=== PATIENT | female | born 1980 | race African-American/Black ===

== ENCOUNTER → 2024-04-18 | Emergency (ER) | payer OTHER ==
[~2024-04-18] MED LIST: Morphine 4 MG/ML VIAL ONE; Ondansetron PF 4 MG/2 ML Vial ONE
== END ==
LOC: ERS 22:56
DX: C76.0 Malignant neoplasm of head, face and neck (principal); R06.9 Unspecified abnormalities of breathing
CPT/HCPCS: 71045; 96374; 96375; J2272; J2405

== ENCOUNTER 2024-04-27 08:32 | Day surgery (SDC) | payer OTHER ==
[~2024-04-27 08:32] MED LIST changes: +CISPLATIN IV SCH; +Dexamethasone 10 MG/ML VIAL SLOW IVP SCH; +Fosaprepitant Dimeglumine 150 MG in 0.9 % Sodium Chloride 145 ML IVPB SCH; +MANNITOL IV SCH; -Morphine 4 MG/ML VIAL ONE; -Ondansetron PF 4 MG/2 ML Vial ONE; +PALONOSETRON HCL 0.05 MG/ML 5 ML VIAL IVP SCH; +SODIUM CHLORIDE 0.9% IV SCH; +Sodium Chloride 0.9% 500 ML IV SCH
[2024-04-27] MEDS ORDERED: Dexamethasone 10 MG/ML VIAL ONE (09:42)
[2024-04-27] MEDS ORDERED: PALONOSETRON HCL 0.05 MG/ML 5 ML VIAL ONE (09:42)
[2024-04-27] MEDS: Fosaprepitant Dimeglumine 150 MG in 0.9 % Sodium Chloride 145 ML IVPB SCH (09:42)
[2024-04-27] MEDS: PALONOSETRON HCL 0.05 MG/ML 5 ML VIAL IVP SCH (09:43)
[2024-04-27] MEDS: Dexamethasone 10 MG/ML VIAL SLOW IVP SCH (09:43)
[2024-04-27 10:14] VITALS: BP 102/69; TEMP 97.6
[2024-04-27] MEDS: SODIUM CHLORIDE 0.9% IV SCH (10:18)
[2024-04-27] MEDS: CISPLATIN IV SCH (10:18)
[2024-04-27] MEDS: MANNITOL IV SCH (10:18)
== END 2024-04-27 13:04 | disposition home or self-care (01) ==
LOC: ONC/OP 08:32
PROVIDERS: ATTEND Internal Medicine Hematology & Oncology
DX: C14.8 Malignant neoplasm of overlapping sites of lip, oral cavity and pharynx (principal)
CPT/HCPCS: 36415; 80053; 82248; 83615; 83735; 84100; 84550; 85025; 96361; 96367; 96375; 96413; J1100; J1453; J2150; J2469; J3480; J7030; J9060

== ENCOUNTER 2024-05-03 12:48 | Day surgery (SDC) | payer OTHER ==
[2024-05-03 13:34] LABS: #Basophils 0.04 10x3/uL (0.0-0.2); %Basophils 0.3 % (0.0-1.0); %Eosinophils 1.2 % (0.0-10.0); %Lymphocytes 6.7 % (21.0-51.0); %Monocytes 6.7 % (0.0-10.0); %Neutrophils 84.5 % (42.0-75.0); Hematocrit 35.2 % (36.0-47.0); Hemoglobin 11.7 g/dL (12.0-16.0); Mean Corpuscular HGB CONC 33.2 g/dL (32.0-36.0); Mean Corpuscular Hemoglobin 27.5 pg (27.0-31.0); Mean Corpuscular Volume 82.6 fL (78.0-98.0); Mean Platelet Volume 9.6 fL (7.4-10.4); Platelet Count 389 10x3/uL (130-400); RBC Distribution Width 14.1 % (11.5-14.5); Red Blood Cell (RBC) Count 4.26 mill/uL (4.20-5.40)
[2024-05-03 13:52] LABS: ALT (SGPT) 131 U/L (8-55); AST (SGOT) 165 U/L (5-34); Albumin 3.7 g/dL (3.5-5.0); Alkaline Phosphatase 120 U/L (40-110); Anion Gap 18 mmol/L (10-20); BUN (Urea Nitrogen) 36 mg/dL (7.0-18.7); Bilirubin, Total 0.6 mg/dL (0.2-1.2); Calc. Creatinine Clearance 63 mL/min (70-130); Calcium 9.9 mg/dL (7.8-10.44); Carbon Dioxide 27 mmol/L (22-29); Chloride 94 mmol/L (98-107); Estimated GFR 81; Globulin 4.7 g/dL (2.4-3.5); Glucose 93 mg/dL (70-105); Potassium 3.8 mmol/L (3.5-5.1); Protein, Total 8.4 g/dL (6.0-8.3); Sodium 135 mmol/L (136-145); Uric Acid 8.3 mg/dL (2.6-6.0)
== END 2024-05-03 13:34 | disposition home or self-care (01) ==
LOC: ONC/OP 12:48
PROVIDERS: ATTEND Internal Medicine
DX: C14.8 Malignant neoplasm of overlapping sites of lip, oral cavity and pharynx (principal)
CPT/HCPCS: 80053; 83615; 83735; 84550; 85025; 99211; G0463

== ENCOUNTER 2024-05-08 12:22 | Inpatient (IN) | payer OTHER ==
[2024-05-08 13:42] LABS: #Basophils 0.04 10x3/uL (0.0-0.2); %Basophils 0.4 % (0.0-1.0); %Eosinophils 1.7 % (0.0-10.0); %Lymphocytes 4.1 % (21.0-51.0); %Monocytes 7.3 % (0.0-10.0); %Neutrophils 86.1 % (42.0-75.0); Hematocrit 35.1 % (36.0-47.0); Hemoglobin 11.9 g/dL (12.0-16.0); Mean Corpuscular HGB CONC 33.9 g/dL (32.0-36.0); Mean Corpuscular Hemoglobin 27.9 pg (27.0-31.0); Mean Corpuscular Volume 82.4 fL (78.0-98.0); Mean Platelet Volume 9.2 fL (7.4-10.4); Platelet Count 352 10x3/uL (130-400); RBC Distribution Width 13.7 % (11.5-14.5); Red Blood Cell (RBC) Count 4.26 mill/uL (4.20-5.40)
[2024-05-08] MEDS ORDERED: Morphine 2 MG/ML VIAL ONE ×2 (13:54→18:01)
[2024-05-08 13:56] LABS: ALT (SGPT) 46 U/L (8-55); AST (SGOT) 42 U/L (5-34); Albumin 3.6 g/dL (3.5-5.0); Alkaline Phosphatase 113 U/L (40-110); Anion Gap 21 mmol/L (10-20); BUN (Urea Nitrogen) 31 mg/dL (7.0-18.7); Calc. Creatinine Clearance 0 mL/min (70-130); Calcium 9.3 mg/dL (7.8-10.44); Carbon Dioxide 24 mmol/L (22-29); Chloride 92 mmol/L (98-107); Estimated GFR 100; Globulin 4.4 g/dL (2.4-3.5); Glucose 79 mg/dL (70-105); Lipase 35 U/L (8-78); Magnesium 1.4 mg/dL (1.6-2.6); Potassium 3.2 mmol/L (3.5-5.1); Sodium 134 mmol/L (136-145)
[2024-05-08] MEDS ORDERED: Iopamidol-370 76% 500 ML MDV (1 ML CHARGE) ONE (13:58)
[2024-05-08 14:02] LABS: Troponin I Less than 0.010 ng/mL (< 0.028)
[2024-05-08] MEDS ORDERED: Magnesium 2 GM/50 ML BAG (IN WATER) ONE (18:02)
[2024-05-08] MEDS ORDERED: Aspirin 300 MG Suppository ONE (18:05)
[2024-05-08] MEDS ORDERED: hydrALAZINE 20 MG/ML VIAL SLOW IVP PRN (18:17)
[2024-05-08] MEDS ORDERED: Ipratropium/Albuterol 3 ML NEB NEB PRN (18:36)
[2024-05-08] MEDS: Potassium Chloride 20 MEQ in Premix 1 BAG IVPB SCH (20:14)
[2024-05-08] MEDS: Ondansetron PF 4 MG/2 ML Vial IVP PRN (20:14)
[2024-05-08 20:23] VITALS: BMI 20.2
[2024-05-08] MEDS: Atorvastatin Calcium 40 MG TAB PER TUBE SCH (20:25)
[2024-05-08] MEDS: Morphine 2 MG/ML VIAL SLOW IVP PRN (23:17)
[2024-05-08 23:58] LABS: Bacteria/HPF None Seen HPF (None Seen); Bilirubin Negative (Negative); Blood, Urine Negative (Negative); CAUTI Indications for Culture Immunosuppressed; Clarity Clear (Clear); Glucose, Urine (Dipstick) Normal (Negative); Ketone, Urine 80 mg/dL (Negative); Leukocyte Negative Leu/uL (Negative); Nitrite Negative (Negative); Protein, Urine (Dipstick) 30 mg/dL (Neg-Trace); Urobilinogen 3 mg/dL (Less than 2); pH, Urine 5.5 (5.0-9.0)
[2024-05-09] LABS: Specific Gravity, Urine Greater than 1.060 (1.002-1.036)
[2024-05-09 00:01] LABS: Urine Culture Reflex Yes Yes
[2024-05-09] MEDS: Potassium Chloride 30 MEQ in Sodium Chloride 0.9% 1,000 ML IV SCH (00:36)
[2024-05-09 04:24] LABS: #Basophils 0.05 10x3/uL (0.0-0.2); %Basophils 0.6 % (0.0-1.0); %Eosinophils 3.4 % (0.0-10.0); %Lymphocytes 5.2 % (21.0-51.0); %Monocytes 10.5 % (0.0-10.0); %Neutrophils 79.7 % (42.0-75.0); Hematocrit 31.6 % (36.0-47.0); Hemoglobin 10.4 g/dL (12.0-16.0); Mean Corpuscular HGB CONC 32.9 g/dL (32.0-36.0); Mean Corpuscular Hemoglobin 27.5 pg (27.0-31.0); Mean Corpuscular Volume 83.6 fL (78.0-98.0); Mean Platelet Volume 9.3 fL (7.4-10.4); Platelet Count 338 10x3/uL (130-400); RBC Distribution Width 13.6 % (11.5-14.5); Red Blood Cell (RBC) Count 3.78 mill/uL (4.20-5.40)
[2024-05-09 07:42] LABS: ALT (SGPT) 55 U/L (8-55); AST (SGOT) 51 U/L (5-34); Albumin 3.1 g/dL (3.5-5.0); Alkaline Phosphatase 107 U/L (40-110); Anion Gap 18 mmol/L (10-20); BUN (Urea Nitrogen) 28 mg/dL (7.0-18.7); Bilirubin, Total 0.6 mg/dL (0.2-1.2); Calc. Creatinine Clearance 85 mL/min (70-130); Calcium 8.7 mg/dL (7.8-10.44); Carbon Dioxide 22 mmol/L (22-29); Cardiac Risk 2.9 (Less than 4.5); Chloride 100 mmol/L (98-107); Cholesterol 201 mg/dl (< 200 Desired); Estimated GFR 112; Globulin 3.9 g/dL (2.4-3.5); Glucose 76 mg/dL (70-105); HDL Cholesterol 69 mg/dL (>60 Neg Risk); LDL Cholesterol, Calculated 114 mg/dL; Potassium 3.5 mmol/L (3.5-5.1); Sodium 136 mmol/L (136-145); Triglycerides 91 mg/dL (Less than 150)
[2024-05-09] MEDS ORDERED: Ondansetron PF 4 MG/2 ML Vial IVP PRN (09:16)
[2024-05-09] MEDS ORDERED: Senokot 8.6 MG TAB PER TUBE PRN (09:17)
[2024-05-09] MEDS ORDERED: OxyCODONE IR 30 MG TAB PER TUBE PRN (09:40)
[2024-05-09] MEDS ORDERED: FIBER PER TUBE SCH (09:45)
[2024-05-09] MEDS ORDERED: LACTOSE REDUCED FOOD PER TUBE SCH (09:45)
[2024-05-09] MEDS: Lorazepam 1 MG TAB PER TUBE PRN (09:50)
[2024-05-09] MEDS: Aspirin Chewable 81 MG TAB PER TUBE SCH (10:04)
[2024-05-09] MEDS: Enoxaparin 30 MG (0.3 mL) SYRINGE SC SCH (10:04)
[2024-05-09] MEDS: Morphine 4 MG/ML VIAL SLOW IVP SCH (10:05)
[2024-05-09] MEDS: Multivits W-Minerals Liquid 15 ML UDCUP PER TUBE SCH (11:21)
[2024-05-09] MEDS: Metoclopramide HCl 10 MG TAB PER TUBE SCH (12:03)
[2024-05-09] MEDS: oxyCODONE 5 MG TAB PER TUBE PRN (17:45)
[2024-05-09] MEDS: Ipratropium/Albuterol 3 ML NEB NEB SCH (20:17)
[2024-05-09] MEDS: traZODone HCl 50 MG TAB PER TUBE SCH (20:51)
[2024-05-09] MEDS: Acetaminophen 325 MG TAB PER TUBE PRN (23:34)
[2024-05-10 05:42] LABS: #Basophils Less than 0.03 10x3/uL (0.0-0.2); %Basophils 0.3 % (0.0-1.0); %Eosinophils 3.6 % (0.0-10.0); %Lymphocytes 4.9 % (21.0-51.0); %Monocytes 7.4 % (0.0-10.0); %Neutrophils 83.5 % (42.0-75.0); Hematocrit 28.4 % (36.0-47.0); Hemoglobin 9.5 g/dL (12.0-16.0); Mean Corpuscular HGB CONC 33.5 g/dL (32.0-36.0); Mean Corpuscular Hemoglobin 27.7 pg (27.0-31.0); Mean Corpuscular Volume 82.8 fL (78.0-98.0); Mean Platelet Volume 9.2 fL (7.4-10.4); Platelet Count 297 10x3/uL (130-400); RBC Distribution Width 13.5 % (11.5-14.5); Red Blood Cell (RBC) Count 3.43 mill/uL (4.20-5.40)
[2024-05-10 05:59] LABS: Anion Gap 15 mmol/L (10-20); BUN (Urea Nitrogen) 18 mg/dL (7.0-18.7); Calc. Creatinine Clearance 100 mL/min (70-130); Calcium 8.3 mg/dL (7.8-10.44); Carbon Dioxide 22 mmol/L (22-29); Chloride 101 mmol/L (98-107); Estimated GFR 117; Glucose 80 mg/dL (70-105); Potassium 3.9 mmol/L (3.5-5.1); Sodium 134 mmol/L (136-145)
[2024-05-10] MEDS ORDERED: FLU (Fluarix Triv) TS24-25(6MOS UP)/PF 45 MCG/0.5 ML Syringe IM ONE (09:00)
[2024-05-10] MEDS ORDERED: Morphine IR Tab 15 MG TAB PER TUBE SCH (09:00)
[2024-05-10] MEDS: Lidocaine 4% Patch TD SCH ×2 (09:50→18:02)
[2024-05-10] MEDS: Lactulose 20 GM (30 mL) UDCUP PER TUBE SCH (09:51)
[2024-05-10] MEDS: tiZANidine HCl 4 MG TAB PER TUBE SCH (09:52)
[2024-05-10] MEDS: Senokot 8.6 MG TAB PER TUBE SCH (09:52)
[2024-05-10] MEDS: Multivits W-Minerals Liquid 15 ML UDCUP PER TUBE SCH (09:53)
[2024-05-10] MEDS: Polyethylene Glycol 3350 17 GM Packet PER TUBE SCH (09:53)
[2024-05-10] MEDS: Sertraline 25 MG TAB PER TUBE SCH (09:54)
[2024-05-10] MEDS: Morphine IR Tab 15 MG TAB PER TUBE SCH ×2 (10:57→19:56)
[2024-05-10] MEDS: Lansoprazole 30 MG/10 ML UDCUP PER TUBE SCH (10:59)
[2024-05-10] MEDS: Morphine ER 15 MG TAB PO SCH (11:02)
[2024-05-10] MEDS: tiZANidine HCl 4 MG TAB PO SCH (11:03)
[2024-05-10] MEDS: Transdermal Patch Removal TOP SCH (23:05)
[2024-05-11] MEDS ORDERED: tiZANidine HCl 4 MG TAB PO SCH (03:30)
[2024-05-11] MEDS: Ketorolac Tromethamine 30 MG (1 mL) VIAL IVP SCH (04:06)
[2024-05-11] MEDS: tiZANidine HCl 4 MG TAB PER TUBE SCH (04:06)
[2024-05-11 04:29] LABS: #Basophils 0.03 10x3/uL (0.0-0.2); %Basophils 0.5 % (0.0-1.0); %Eosinophils 4.1 % (0.0-10.0); %Lymphocytes 5.3 % (21.0-51.0); %Monocytes 8.5 % (0.0-10.0); Hematocrit 29.4 % (36.0-47.0); Hemoglobin 9.9 g/dL (12.0-16.0); Mean Corpuscular HGB CONC 33.7 g/dL (32.0-36.0); Mean Corpuscular Hemoglobin 27.8 pg (27.0-31.0); Mean Corpuscular Volume 82.6 fL (78.0-98.0); Mean Platelet Volume 9.5 fL (7.4-10.4); Platelet Count 304 10x3/uL (130-400); RBC Distribution Width 13.3 % (11.5-14.5); Red Blood Cell (RBC) Count 3.56 mill/uL (4.20-5.40)
[2024-05-11 04:44] LABS: Anion Gap 12 mmol/L (10-20); BUN (Urea Nitrogen) 9 mg/dL (7.0-18.7); Calc. Creatinine Clearance 108 mL/min (70-130); Calcium 8.6 mg/dL (7.8-10.44); Carbon Dioxide 23 mmol/L (22-29); Chloride 102 mmol/L (98-107); Estimated GFR 119; Glucose 97 mg/dL (70-105); Potassium 4.1 mmol/L (3.5-5.1); Sodium 133 mmol/L (136-145)
[2024-05-11] MEDS: Transdermal Patch Removal TOP SCH (05:45)
[2024-05-11] MEDS ORDERED: Lidocaine 4% Patch TD SCH (09:00)
[2024-05-11] MEDS: Enoxaparin 40 MG (0.4 mL) SYRINGE SC SCH (09:34)
[2024-05-11] MEDS ORDERED: Iopamidol 370 76% 100 ML VIAL ONE (10:55)
[2024-05-11] MEDS: Amlodipine 5 MG TAB PO SCH (14:56)
[2024-05-11] MEDS: VANCOMYCIN 1.25 GM/250 ML BAG 1.25 GM in Premix 1 BAG IVPB SCH (16:54)
[2024-05-11] MEDS: Vancomycin (BATCH) 1.25 GM in Premix 1 BAG IVPB SCH (16:54)
[2024-05-11] MEDS: Diclofenac 1% 50 GM TOPICAL GEL TP SCH (16:55)
[2024-05-11] MEDS: Cefepime 2 GM in Sodium Chloride 0.9% 100 ML IVPB SCH (19:08)
[2024-05-11] MEDS ORDERED: Vancomycin 1 GM in Premix 1 BAG IVPB SCH (21:00)
[2024-05-11] MEDS ORDERED: Naloxone HCl 0.4 mg/ml Vial IV PRN (22:39)
[2024-05-11] MEDS: Vancomycin 1 GM in Premix 1 BAG IVPB SCH (22:57)
[2024-05-12 04:30] LABS: #Basophils 0.03 10x3/uL (0.0-0.2); %Basophils 0.6 % (0.0-1.0); %Eosinophils 4.7 % (0.0-10.0); %Lymphocytes 5.5 % (21.0-51.0); %Monocytes 8.8 % (0.0-10.0); Hematocrit 30.7 % (36.0-47.0); Hemoglobin 10.2 g/dL (12.0-16.0); Mean Corpuscular HGB CONC 33.2 g/dL (32.0-36.0); Mean Corpuscular Hemoglobin 27.5 pg (27.0-31.0); Mean Corpuscular Volume 82.7 fL (78.0-98.0); Mean Platelet Volume 9.5 fL (7.4-10.4); Platelet Count 306 10x3/uL (130-400); RBC Distribution Width 13.4 % (11.5-14.5); Red Blood Cell (RBC) Count 3.71 mill/uL (4.20-5.40)
[2024-05-12 05:07] LABS: Vancomycin, Random 36.1 ug/mL (See Comment)
[2024-05-12 05:11] LABS: Anion Gap 15 mmol/L (10-20); BUN (Urea Nitrogen) 7 mg/dL (7.0-18.7); Calc. Creatinine Clearance 92 mL/min (70-130); Calcium 9.1 mg/dL (7.8-10.44); Carbon Dioxide 24 mmol/L (22-29); Chloride 100 mmol/L (98-107); Estimated GFR 114; Glucose 95 mg/dL (70-105); Potassium 4.1 mmol/L (3.5-5.1); Sodium 135 mmol/L (136-145)
[2024-05-12] MEDS: Amlodipine 5 MG TAB PO SCH (08:05)
[2024-05-12] MEDS: Morphine ER 15 MG TAB PO SCH (08:11)
[2024-05-12] MEDS: Pantoprazole 40 MG VIAL IVP SCH (10:57)
[2024-05-12] MEDS: Vancomycin HCl 750 MG in Sodium Chloride 0.9% 100 ML IVPB SCH (10:57)
[2024-05-12] MEDS: Promethazine HCl 12.5 MG in Sodium Chloride 0.9% 50 ML IVPB PRN (14:34)
[2024-05-13] MEDS: hydrALAZINE 20 MG/ML VIAL SLOW IVP PRN (01:20)
[2024-05-13 04:37] LABS: #Basophils Less than 0.03 10x3/uL (0.0-0.2); %Basophils 0.3 % (0.0-1.0); %Eosinophils 3.6 % (0.0-10.0); %Lymphocytes 3.9 % (21.0-51.0); %Monocytes 8.2 % (0.0-10.0); %Neutrophils 83.6 % (42.0-75.0); Hematocrit 32.7 % (36.0-47.0); Hemoglobin 11.2 g/dL (12.0-16.0); Mean Corpuscular HGB CONC 34.3 g/dL (32.0-36.0); Mean Corpuscular Hemoglobin 27.7 pg (27.0-31.0); Mean Corpuscular Volume 80.9 fL (78.0-98.0); Mean Platelet Volume 9.3 fL (7.4-10.4); Platelet Count 395 10x3/uL (130-400); RBC Distribution Width 13.6 % (11.5-14.5); Red Blood Cell (RBC) Count 4.04 mill/uL (4.20-5.40)
[2024-05-13 05:02] LABS: Anion Gap 16 mmol/L (10-20); BUN (Urea Nitrogen) 8 mg/dL (7.0-18.7); Calc. Creatinine Clearance 88 mL/min (70-130); Calcium 9.3 mg/dL (7.8-10.44); Carbon Dioxide 23 mmol/L (22-29); Chloride 97 mmol/L (98-107); Estimated GFR 113; Glucose 134 mg/dL (70-105); Potassium 3.4 mmol/L (3.5-5.1); Sodium 133 mmol/L (136-145)
[2024-05-13] MEDS: Morphine ER 15 MG TAB PO SCH ×2 (09:07→13:03)
[2024-05-13] MEDS: Potassium Bicarbonate/Cit Ac 20 MEQ TAB PER TUBE SCH (11:59)
[2024-05-13] MEDS: Morphine 2 MG/ML VIAL SLOW IVP PRN (13:58)
[2024-05-13] MEDS: Potassium Chloride 20 MEQ (100 mL) BAG IVPB SCH (14:00)
[2024-05-14 05:09] LABS: #Basophils 0.03 10x3/uL (0.0-0.2); %Basophils 0.6 % (0.0-1.0); %Eosinophils 4.9 % (0.0-10.0); %Lymphocytes 5.9 % (21.0-51.0); %Monocytes 11.8 % (0.0-10.0); %Neutrophils 76.4 % (42.0-75.0); Hematocrit 30.5 % (36.0-47.0); Mean Corpuscular HGB CONC 32.8 g/dL (32.0-36.0); Mean Corpuscular Hemoglobin 27.5 pg (27.0-31.0); Mean Platelet Volume 9.2 fL (7.4-10.4); Platelet Count 347 10x3/uL (130-400); Red Blood Cell (RBC) Count 3.63 mill/uL (4.20-5.40)
[2024-05-14 05:30] LABS: Chloride 102 mmol/L (98-107); Potassium 4.3 mmol/L (3.5-5.1); Sodium 134 mmol/L (136-145)
[2024-05-14 05:32] LABS: Anion Gap 14 mmol/L (10-20); BUN (Urea Nitrogen) 11 mg/dL (7.0-18.7); Calc. Creatinine Clearance 89 mL/min (70-130); Calcium 9.1 mg/dL (7.8-10.44); Carbon Dioxide 23 mmol/L (22-29); Estimated GFR 114; Glucose 109 mg/dL (70-105)
[2024-05-14 13:55] LABS: Troponin I Less than 0.010 ng/mL (< 0.028)
[2024-05-14] MEDS: oxyCODONE 5 MG TAB PO PRN (17:13)
[2024-05-15 05:24] LABS: Vancomycin, Random 27.6 ug/mL (See Comment)
[2024-05-15] MEDS: Lorazepam 2 MG/ML VIAL SLOW IVP PRN (07:21)
[2024-05-16] MEDS: Ondansetron PF 4 MG/2 ML Vial IVP SCH (13:00)
[2024-05-17 08:40] LABS: #Basophils Less than 0.03 10x3/uL (0.0-0.2); %Basophils 0.4 % (0.0-1.0); %Eosinophils 4.3 % (0.0-10.0); %Lymphocytes 6.2 % (21.0-51.0); %Monocytes 11.4 % (0.0-10.0); %Neutrophils 77.3 % (42.0-75.0); Hemoglobin 10.4 g/dL (12.0-16.0); Mean Corpuscular HGB CONC 33.5 g/dL (32.0-36.0); Mean Corpuscular Hemoglobin 28.2 pg (27.0-31.0); Mean Platelet Volume 8.8 fL (7.4-10.4); Platelet Count 279 10x3/uL (130-400); RBC Distribution Width 14.1 % (11.5-14.5); Red Blood Cell (RBC) Count 3.69 mill/uL (4.20-5.40)
[2024-05-17 09:07] LABS: Anion Gap 11 mmol/L (10-20); BUN (Urea Nitrogen) 15 mg/dL (7.0-18.7); Calc. Creatinine Clearance 89 mL/min (70-130); Calcium 9.9 mg/dL (7.8-10.44); Carbon Dioxide 27 mmol/L (22-29); Chloride 99 mmol/L (98-107); Estimated GFR 114; Glucose 117 mg/dL (70-105); Magnesium 1.3 mg/dL (1.6-2.6); Potassium 3.8 mmol/L (3.5-5.1); Sodium 133 mmol/L (136-145)
[2024-05-17] MEDS: oxyCODONE 5 MG TAB PO PRN (15:11)
[2024-05-17] MEDS: Magnesium Sulfate In Water 4 GM in Premix 1 BAG IVPB SCH (17:02)
[2024-05-17] MEDS: Morphine ER 15 MG TAB PO SCH (20:48)
[2024-05-18 04:54] LABS: #Basophils 0.03 10x3/uL (0.0-0.2); %Basophils 0.6 % (0.0-1.0); %Eosinophils 4.2 % (0.0-10.0); %Lymphocytes 7.2 % (21.0-51.0); %Neutrophils 75.4 % (42.0-75.0); Hematocrit 33.6 % (36.0-47.0); Hemoglobin 11.1 g/dL (12.0-16.0); Mean Corpuscular Hemoglobin 27.8 pg (27.0-31.0); Mean Platelet Volume 8.8 fL (7.4-10.4); Platelet Count 287 10x3/uL (130-400)
[2024-05-18 05:40] LABS: Anion Gap 16 mmol/L (10-20); BUN (Urea Nitrogen) 13 mg/dL (7.0-18.7); Calc. Creatinine Clearance 92 mL/min (70-130); Calcium 9.6 mg/dL (7.8-10.44); Carbon Dioxide 24 mmol/L (22-29); Chloride 95 mmol/L (98-107); Estimated GFR 114; Glucose 88 mg/dL (70-105); Magnesium 2.1 mg/dL (1.6-2.6); Potassium 4.3 mmol/L (3.5-5.1); Sodium 131 mmol/L (136-145)
[2024-05-18] MEDS: Senokot S 8.6-50 MG TAB PER TUBE SCH (21:08)
[2024-05-19 06:09] LABS: Anion Gap 15 mmol/L (10-20); BUN (Urea Nitrogen) 19 mg/dL (7.0-18.7); Calc. Creatinine Clearance 88 mL/min (70-130); Calcium 10.1 mg/dL (7.8-10.44); Carbon Dioxide 26 mmol/L (22-29); Chloride 98 mmol/L (98-107); Estimated GFR 113; Glucose 91 mg/dL (70-105); Magnesium 1.6 mg/dL (1.6-2.6); Potassium 4.4 mmol/L (3.5-5.1); Sodium 135 mmol/L (136-145)
[2024-05-19 06:15] LABS: #Basophils 0.03 10x3/uL (0.0-0.2); %Basophils 0.7 % (0.0-1.0); %Eosinophils 4.7 % (0.0-10.0); %Lymphocytes 6.6 % (21.0-51.0); %Monocytes 12.3 % (0.0-10.0); %Neutrophils 75.2 % (42.0-75.0); Hemoglobin 10.5 g/dL (12.0-16.0); Mean Corpuscular HGB CONC 32.8 g/dL (32.0-36.0); Mean Corpuscular Hemoglobin 27.8 pg (27.0-31.0); Mean Corpuscular Volume 84.7 fL (78.0-98.0); Mean Platelet Volume 9.3 fL (7.4-10.4); Platelet Count 285 10x3/uL (130-400); RBC Distribution Width 14.1 % (11.5-14.5); Red Blood Cell (RBC) Count 3.78 mill/uL (4.20-5.40)
[2024-05-19] MEDS: fentaNYL 12 mcg Patch TD SCH (09:39)
[2024-05-19] MEDS: fentaNYL 25 mcg Patch TD SCH (09:41)
[2024-05-19] MEDS ORDERED: Morphine 4 MG/ML VIAL SLOW IVP PRN (10:31)
[2024-05-19] MEDS: Morphine 2 MG/ML VIAL SLOW IVP SCH (10:42)
[2024-05-19 15:08] VITALS: BMI 20.8
[2024-05-19] MEDS: HYDROmorphone 2 MG TAB PER TUBE PRN (15:52)
[2024-05-19] MEDS: Acetaminophen 325 MG TAB PER TUBE SCH (15:53)
[2024-05-19] MEDS: Morphine 4 MG/ML VIAL SLOW IVP PRN (18:08)
[2024-05-20 04:33] LABS: #Basophils 0.03 10x3/uL (0.0-0.2); %Basophils 0.6 % (0.0-1.0); %Monocytes 13.1 % (0.0-10.0); %Neutrophils 77.7 % (42.0-75.0); Hematocrit 31.3 % (36.0-47.0); Hemoglobin 10.5 g/dL (12.0-16.0); Mean Corpuscular HGB CONC 33.5 g/dL (32.0-36.0); Mean Corpuscular Hemoglobin 28.4 pg (27.0-31.0); Mean Corpuscular Volume 84.6 fL (78.0-98.0); Mean Platelet Volume 9.2 fL (7.4-10.4); Platelet Count 260 10x3/uL (130-400); RBC Distribution Width 13.9 % (11.5-14.5)
[2024-05-20 04:58] LABS: Anion Gap 14 mmol/L (10-20); BUN (Urea Nitrogen) 21 mg/dL (7.0-18.7); Calc. Creatinine Clearance 98 mL/min (70-130); Calcium 9.9 mg/dL (7.8-10.44); Carbon Dioxide 27 mmol/L (22-29); Chloride 96 mmol/L (98-107); Estimated GFR 115; Glucose 104 mg/dL (70-105); Magnesium 1.5 mg/dL (1.6-2.6); Potassium 4.2 mmol/L (3.5-5.1); Sodium 133 mmol/L (136-145)
[2024-05-20] MEDS ORDERED: Bisacodyl 10 MG SUPP PR PRN (07:59)
[2024-05-20] MEDS ORDERED: Bisacodyl 5 MG TAB PO PRN (07:59)
[2024-05-20] MEDS: Magnesium 2 GM/50 ML(in water) 4 GM in Premix 1 BAG IVPB SCH (09:23)
[2024-05-20] MEDS: Milk Of Magnesia 30 ML UDCUP PER TUBE SCH (09:25)
[2024-05-20] MEDS: Bisacodyl 10 MG SUPP PR SCH (09:28)
[2024-05-20] MEDS: Sodium Chloride 0.9% 1,000 ML IV SCH (12:50)
[2024-05-20] MEDS: Morphine 20 MG/ML Oral Solution (ROXANOL) SL PRN (13:22)
[2024-05-20] MEDS: Ipratropium/Albuterol 3 ML NEB NEB PRN (15:59)
[2024-05-20 18:37] LABS: Hematocrit 30.8 % (36.0-47.0); Hemoglobin 10.2 g/dL (12.0-16.0); Mean Corpuscular HGB CONC 33.1 g/dL (32.0-36.0); Mean Corpuscular Hemoglobin 27.8 pg (27.0-31.0); Mean Corpuscular Volume 83.9 fL (78.0-98.0); Mean Platelet Volume 8.7 fL (7.4-10.4); Platelet Count 248 10x3/uL (130-400); RBC Distribution Width 13.9 % (11.5-14.5); Red Blood Cell (RBC) Count 3.67 mill/uL (4.20-5.40)
[2024-05-20 18:51] LABS: Prothrombin Time 12.8 sec (12.0-14.7)
[2024-05-20 18:52] LABS: PTT 37.9 sec (22.9-36.1)
[2024-05-20] MEDS: Pantoprazole 40 MG VIAL IVP SCH (20:23)
[2024-05-21] MEDS: Acetaminophen 650 MG Suppository PR PRN (07:57)
[2024-05-21 08:03] LABS: #Basophils 0.04 10x3/uL (0.0-0.2); %Basophils 0.5 % (0.0-1.0); %Eosinophils 2.1 % (0.0-10.0); %Lymphocytes 2.3 % (21.0-51.0); %Monocytes 8.6 % (0.0-10.0); %Neutrophils 86.1 % (42.0-75.0); Hematocrit 30.5 % (36.0-47.0); Mean Corpuscular HGB CONC 32.8 g/dL (32.0-36.0); Mean Corpuscular Hemoglobin 27.6 pg (27.0-31.0); Mean Corpuscular Volume 84.3 fL (78.0-98.0); Mean Platelet Volume 9.2 fL (7.4-10.4); Platelet Count 255 10x3/uL (130-400); Red Blood Cell (RBC) Count 3.62 mill/uL (4.20-5.40)
[2024-05-21 08:17] LABS: Anion Gap 15 mmol/L (10-20); BUN (Urea Nitrogen) 16 mg/dL (7.0-18.7); Calc. Creatinine Clearance 93 mL/min (70-130); Calcium 9.6 mg/dL (7.8-10.44); Carbon Dioxide 26 mmol/L (22-29); Chloride 98 mmol/L (98-107); Estimated GFR 114; Glucose 85 mg/dL (70-105); Magnesium 1.6 mg/dL (1.6-2.6); Potassium 4.1 mmol/L (3.5-5.1); Sodium 135 mmol/L (136-145)
[2024-05-21] MEDS: Magnesium 2 GM/50 ML(in water) 4 GM in Premix 1 BAG IVPB SCH (09:39)
[2024-05-21] MEDS: Morphine 4 MG/ML VIAL SLOW IVP PRN (15:25)
[2024-05-21] MEDS: Scopolamine 1 mg/72 hour Patch TD SCH (17:54)
[2024-05-21] MEDS ORDERED: Fluconazole 100 MG TAB PO SCH (18:30)
[2024-05-21] MEDS: Fluconazole 100 MG TAB PER TUBE SCH (20:44)
[2024-05-21] MEDS ORDERED: Naloxone HCl 0.4 mg/ml Vial IV PRN (23:10)
[2024-05-22 00:20] LABS: Potassium 3.6 mmol/L (3.5-5.1)
[2024-05-22] MEDS: Fluconazole 100 MG TAB PER TUBE SCH (09:05)
[2024-05-22] MEDS: Morphine 4 MG/ML VIAL SLOW IVP PRN (18:30)
[2024-05-23 08:52] LABS: #Basophils Less than 0.03 10x3/uL (0.0-0.2); %Basophils 0.4 % (0.0-1.0); %Eosinophils 2.5 % (0.0-10.0); %Lymphocytes 2.8 % (21.0-51.0); %Monocytes 9.3 % (0.0-10.0); %Neutrophils 84.6 % (42.0-75.0); Hematocrit 30.2 % (36.0-47.0); Hemoglobin 10.2 g/dL (12.0-16.0); Mean Corpuscular HGB CONC 33.8 g/dL (32.0-36.0); Mean Corpuscular Hemoglobin 27.5 pg (27.0-31.0); Mean Corpuscular Volume 81.4 fL (78.0-98.0); Mean Platelet Volume 8.8 fL (7.4-10.4); Platelet Count 197 10x3/uL (130-400); RBC Distribution Width 13.9 % (11.5-14.5); Red Blood Cell (RBC) Count 3.71 mill/uL (4.20-5.40)
[2024-05-23 08:59] LABS: Anion Gap 14 mmol/L (10-20); BUN (Urea Nitrogen) 18 mg/dL (7.0-18.7); Calc. Creatinine Clearance 91 mL/min (70-130); Calcium 9.7 mg/dL (7.8-10.44); Carbon Dioxide 28 mmol/L (22-29); Chloride 96 mmol/L (98-107); Estimated GFR 113; Glucose 113 mg/dL (70-105); Sodium 134 mmol/L (136-145)
[2024-05-23] MEDS: Morphine 20 MG/ML Oral Solution (ROXANOL) SL PRN (17:00)
[2024-05-24] MEDS: fentaNYL 50 mcg/hour Patch TD SCH (10:38)
[2024-05-24] MEDS: Enoxaparin 40 MG (0.4 mL) SYRINGE SC SCH (10:40)
[2024-05-24] MEDS: Dexamethasone 10 MG/ML VIAL SLOW IVP SCH (10:44)
[2024-05-24] MEDS: Metoclopramide HCl 10 MG (2 mL) VIAL IVP SCH (10:45)
[2024-05-24] MEDS ORDERED: Diclofenac 1% 50 GM TOPICAL GEL TP PRN (14:02)
[2024-05-25] MEDS: Morphine 4 MG/ML VIAL SLOW IVP PRN (06:58)
[2024-05-25] MEDS: Ondansetron PF 4 MG/2 ML Vial IVP SCH (08:02)
[2024-05-25] MEDS: Metoclopramide HCl 10 MG (2 mL) VIAL IVP SCH ×2 (11:03→11:04)
[2024-05-25] MEDS: Gabapentin 100 MG CAP PO SCH ×2 (17:06→20:46)
[2024-05-25] MEDS: GUAIFENESIN SF SOLN 200 MG/10 ML UDCUP PER TUBE PRN (20:45)
[2024-05-26] MEDS: Lorazepam 1 MG TAB PO PRN (15:43)
[2024-05-26] MEDS: Lorazepam 2 MG/ML VIAL SLOW IVP PRN (22:01)
[2024-05-27 07:02] LABS: #Basophils Less than 0.03 10x3/uL (0.0-0.2); %Basophils 0.3 % (0.0-1.0); %Eosinophils 2.4 % (0.0-10.0); %Lymphocytes 4.3 % (21.0-51.0); %Neutrophils 79.5 % (42.0-75.0); Hematocrit 31.6 % (36.0-47.0); Hemoglobin 10.5 g/dL (12.0-16.0); Mean Corpuscular HGB CONC 33.2 g/dL (32.0-36.0); Mean Corpuscular Hemoglobin 27.5 pg (27.0-31.0); Mean Corpuscular Volume 82.7 fL (78.0-98.0); Mean Platelet Volume 8.8 fL (7.4-10.4); Platelet Count 204 10x3/uL (130-400); RBC Distribution Width 14.1 % (11.5-14.5); Red Blood Cell (RBC) Count 3.82 mill/uL (4.20-5.40)
[2024-05-27 07:31] LABS: Anion Gap 13 mmol/L (10-20); BUN (Urea Nitrogen) 20 mg/dL (7.0-18.7); Calc. Creatinine Clearance 86 mL/min (70-130); Carbon Dioxide 27 mmol/L (22-29); Chloride 95 mmol/L (98-107); Estimated GFR 112; Glucose 85 mg/dL (70-105); Magnesium 1.5 mg/dL (1.6-2.6); Phosphorus 3.8 mg/dL (2.3-4.7); Potassium 4.1 mmol/L (3.5-5.1); Sodium 131 mmol/L (136-145)
[2024-05-27] MEDS: Sodium Chloride 0.9% 1,000 ML IV SCH (13:34)
[2024-05-28] MEDS: Magnesium Sulfate In Water 4 GM in Premix 1 BAG IVPB SCH (09:58)
[2024-05-28] MEDS ORDERED: Iopamidol 370 76% 100 ML VIAL ONE (10:45)
[2024-05-28] MEDS: METHadone HCl 10 MG TAB PO SCH ×2 (13:04→20:34)
[2024-05-28] MEDS: Sodium Chloride 0.9% 500 ML IV SCH (14:17)
[2024-05-28] MEDS: Morphine 10 MG/0.5 ML ORAL SYRINGE SL PRN (18:09)
[2024-05-31 09:18] VITALS: BP 102/70; TEMP 98.4
== END 2024-05-31 10:15 | disposition hospice, inpatient (51) | DRG 391 ==
LOC: ERS 12:22 → MSONC 17:20
PROVIDERS: ADMIT Internal Medicine; ATTEND Student in an Organized Health Care Education/Training Program
PROC: 4A00X4Z Measurement of Central Nervous Electrical Activity, External Approach (ICD-10-PCS; principal; 2024-05-10)
DX: R11.2 Nausea with vomiting, unspecified (principal); I63.81 Other cerebral infarction due to occlusion or stenosis of small artery; S52.201A Unspecified fracture of shaft of right ulna, initial encounter for closed fracture; K52.1 Toxic gastroenteritis and colitis; L03.221 Cellulitis of neck; R19.7 Diarrhea, unspecified; Z98.890 Other specified postprocedural states; E86.0 Dehydration; C10.9 Malignant neoplasm of oropharynx, unspecified; Z66 Do not resuscitate; Z87.891 Personal history of nicotine dependence; Z79.899 Other long term (current) drug therapy; K59.03 Drug induced constipation; T45.1X5A Adverse effect of antineoplastic and immunosuppressive drugs, initial encounter; Z79.82 Long term (current) use of aspirin; Z51.5 Encounter for palliative care; E87.8 Other disorders of electrolyte and fluid balance, not elsewhere classified; W18.30XA Fall on same level, unspecified, initial encounter; R53.81 Other malaise; L04.0 Acute lymphadenitis of face, head and neck
CPT/HCPCS: 36415; 70450; 70491; 70553; 71045; 72125; 72148; 72158; 74018; 74177; 76376; 76536; 76705; 77014; 80048; 80053; 80061; 80202; 80306; 81001; 82565; 83605; 83690; 83735; 83880; 84100; 84443; 84484; 85025; 85610; 85730; 86141; 86850; 86900; 86901; 87040; 87086; 87428; 93005; 93010; 93880; 93970; 94640; 95700; 95711; 95957; 96374; 96375; 96376; J0360; J0692; J1100; J1650; J1885; J2060; J2270; J2272; J2405; J2470; J2550; J2765; J3370; J3475; J3480; J7030; J7620; Q9967

== ENCOUNTER 2024-06-02 08:29 | Emergency (ER) | payer OTHER ==
[2024-06-02] MEDS ORDERED: fentaNYL 50 mcg/mL 1 mL Vial ONE ×3 (09:07→13:27)
[2024-06-02 09:33] LABS: #Basophils 0.03 10x3/uL (0.0-0.2); %Basophils 0.5 % (0.0-1.0); %Eosinophils 1.4 % (0.0-10.0); %Lymphocytes 3.1 % (21.0-51.0); %Monocytes 8.2 % (0.0-10.0); %Neutrophils 86.3 % (42.0-75.0); Hematocrit 27.8 % (36.0-47.0); Hemoglobin 9.1 g/dL (12.0-16.0); Mean Corpuscular HGB CONC 32.7 g/dL (32.0-36.0); Mean Corpuscular Hemoglobin 27.8 pg (27.0-31.0); Mean Platelet Volume 9.4 fL (7.4-10.4); Platelet Count 248 10x3/uL (130-400); RBC Distribution Width 14.8 % (11.5-14.5); Red Blood Cell (RBC) Count 3.27 mill/uL (4.20-5.40)
[2024-06-02 10:09] LABS: ALT (SGPT) 6 U/L (8-55); AST (SGOT) 16 U/L (5-34); Albumin 2.8 g/dL (3.5-5.0); Alkaline Phosphatase 76 U/L (40-110); Anion Gap 20 mmol/L (10-20); BUN (Urea Nitrogen) 13 mg/dL (7.0-18.7); Bilirubin, Total 0.6 mg/dL (0.2-1.2); Calc. Creatinine Clearance 0 mL/min (70-130); Carbon Dioxide 22 mmol/L (22-29); Chloride 93 mmol/L (98-107); Estimated GFR 118; Globulin 3.6 g/dL (2.4-3.5); Glucose 70 mg/dL (70-105); Potassium 3.9 mmol/L (3.5-5.1); Protein, Total 6.4 g/dL (6.0-8.3); Sodium 131 mmol/L (136-145)
[2024-06-02] MEDS ORDERED: Magnesium 2 GM/50 ML BAG (IN WATER) ONE (10:40)
[2024-06-02] MEDS ORDERED: Cefepime 2 GM VIAL ONE (11:15)
[2024-06-02] MEDS ORDERED: Sodium Chloride 0.9% 100 ML ONE (11:15)
[2024-06-02] MEDS ORDERED: Vancomycin 1 GM/200 ML (FROZEN) BAG ONE (12:35)
== END 2024-06-02 14:00 | disposition home or self-care (01) ==
LOC: ERS 08:29
DX: E83.42 Hypomagnesemia (principal); L03.90 Cellulitis, unspecified; Z43.0 Encounter for attention to tracheostomy
CPT/HCPCS: 36415; 71045; 80053; 83605; 83735; 85025; 87040; 96365; 96367; 96375; 96376; J0692; J3010; J3370; J3475

== ENCOUNTER 2024-06-13 06:13 | Emergency (ER) | payer OTHER ==
[2024-06-13] MEDS ORDERED: Lorazepam 2 MG/ML VIAL ONE (07:48)
== END 2024-06-13 09:18 | disposition home or self-care (01) ==
LOC: ERS 06:13
DX: K94.23 Gastrostomy malfunction (principal); K21.9 Gastro-esophageal reflux disease without esophagitis; Z55.6 Problems related to health literacy; Z79.899 Other long term (current) drug therapy
CPT/HCPCS: 43762; 71045; 74018; 96374; J2060